=== PATIENT | female | born 1945 | race Caucasian/White ===

== ENCOUNTER 2021-06-19 01:09 | Day surgery (SDC) | payer MEDICARE, SELFPAY ==
[2021-06-07 13:05] VITALS: BMI 28.3
--- NOTE | 2021-06-18 13:02 | PM.HPGS ---
History of Present Illness History of Present Illness Consent: Risks, benefits, and alternatives have been discussed and questions answered. Patient agrees to proceed with procedure. Chief complaint: neoplasm screening Narrative: Johanne Ricardo is a 76 year old female Referred for colon cancer screening Review of Systems Review of Systems: All systems reviewed & are unremarkable except as noted in HPI and below PMFSH Past Medical History Medical History Diabetes HTN (hypertension) Hyperlipidemia Overweight Surgical History Surgical History H/O: hysterectomy History of total knee arthroplasty Social History Social History Smoking packs per day: 1 Smoking cigarettes per day: 20.0 Years smoked: 20 Smoking pack-years: 20.00 Smoking status: Former smoker Substance use type: does not use Meds Home Medications and Allergies Home Medications Medication Instructions Recorded Confirmed Type atorvastatin 20 mg PO DAILY 06/07/21 06/19/21 History bisoprolol-hydrochlorothiazide 1 tablet PO DAILY 06/07/21 06/19/21 History lisinopril 5 mg PO DAILY 06/07/21 06/19/21 History metformin 500 mg PO BID 06/07/21 06/19/21 History pantoprazole 40 mg PO DAILY 06/07/21 06/19/21 History Allergies Allergy/AdvReac Type Severity Reaction Status Date / Time No Known Allergies Verified 06/19/21 11:02 Exam Resp: Auscultation: clear to auscultation bilaterally Cardio: Rate: regular rate Rhythm: regular rhythm GI: GI Palp: Yes Soft to palpation and No Tenderness to palpation present (GI) Assessment and Plan Assessment and plan (1) Colon cancer screening: Code(s): Z12.11 - Encounter for screening for malignant neoplasm of colon Status: Acute Assessment and Plan: Colonoscopy with possible biopsy or polypectomy or cautery or injection of substances.
[2021-06-19 11:03] VITALS: BP 145/85; PULSE 91; RESP 16; TEMP 37.3; O2SAT 96
[2021-06-19 11:03] LABS: Glucose Point of Care 172 mg/dl (65-105)
[2021-06-19] MEDS: LACTATED RINGERS 1,000 ML 150 ML IV CONT (11:05)
--- NOTE | 2021-06-19 11:13 | P.PNAN_ITS ---
Anes - Initial Pre Proc Eval Procedure: Operation Date: 06/19/21 12:30 Proposed Procedures p Screening Colonoscopy - Bhargav Voss MD Date/Time: 06/19/21 11:13 Surgeon: Bhargav Voss MD Pre Op Diagnosis: neoplasm screening Patient Data Age: 76 Gender: F Height: 1.63 m Weight: 74.1 kg Last Vital Signs Temp 37.3 C 06/19/21 11:03 Pulse 91 06/19/21 11:03 Resp 16 06/19/21 11:03 BP 145/85 H 06/19/21 11:03 Pulse Ox 96 06/19/21 11:03 Allergies Allergy/AdvReac Type Severity Reaction Status Date / Time No Known Allergies Verified 06/19/21 11:02 Home Medications Medication Instructions Recorded Confirmed Type atorvastatin 20 mg PO DAILY 06/07/21 06/19/21 History bisoprolol-hydrochlorothiazide 1 tablet PO DAILY 06/07/21 06/19/21 History lisinopril 5 mg PO DAILY 06/07/21 06/19/21 History metformin 500 mg PO BID 06/07/21 06/19/21 History pantoprazole 40 mg PO DAILY 06/07/21 06/19/21 History Laboratory Tests 06/19/21 11:00 POC Capillary Glucose 172 mg/dl H mg/dl (65-105) Patient hx anesthesia problems: none Family hx anesthesia problems: none Results Review: All pre-operative results and documents have been reviewed as part of the pre-operative evaluation. [facility] Past Medical History Medical History (Updated 06/19/21 @ 11:14 by Rosalino De Leon MD) Diabetes HTN (hypertension) Hyperlipidemia Overweight Surgical History Surgical History (Updated 06/19/21 @ 11:14 by Rosalino De Leon MD) H/O: hysterectomy History of total knee arthroplasty Social History Social History Smoking packs per day: 1 Smoking cigarettes per day: 20.0 Years smoked: 20 Smoking pack-years: 20.00 Smoking status: Former smoker Substance use type: does not use Anes - Eval Final PreProcedure Day of Procedure 06/19/21 11:13 Patient weight: overweight Heart: regular rate and rhythm Lungs: clear to auscultation Airway: Mallampati scale class II Neurological: alert and oriented Last oral intake: >/= 8 hours ASA classification: III Emergent: no Anesthetic plan: proceed Anesthesia type and monitoring: general GIVS and standard monitoring Results Review: All pre-operative results and documents have been reviewed as part of the pre-operative evaluation. Informed Consent: The patient's anesthetic plan and its attendant risks and benefits were discussed with the patient/family/POA. Questions were solicited and answers provided to the satisfaction of the patient/family/POA.
[2021-06-19 12:14] VITALS: BP 120/52; PULSE 80; RESP 20; O2SAT 96
[2021-06-19 12:24] VITALS: BP 116/81; PULSE 74; RESP 20; O2SAT 97
[2021-06-19 12:34] VITALS: BP 121/75; PULSE 72; RESP 18; O2SAT 96
== END 2021-06-19 12:45 | disposition home or self-care (01) ==
PROVIDERS: PCP Internal Medicine; Visit Provider Internal Medicine Gastroenterology
PROC: 0DJD8ZZ Inspection of Lower Intestinal Tract, Via Natural or Artificial Opening Endoscopic (ICD-10-PCS; CPT 45378; principal; 2021-06-19 12:30)
DX: Z12.11 Encounter for screening for malignant neoplasm of colon (principal); D12.5 Benign neoplasm of sigmoid colon; K57.30 Diverticulosis of large intestine without perforation or abscess without bleeding; I10 Essential (primary) hypertension; E11.9 Type 2 diabetes mellitus without complications; E78.5 Hyperlipidemia, unspecified; Z90.710 Acquired absence of both cervix and uterus
CPT/HCPCS: 45380; 82948; 88305; J2704; J7120

== ENCOUNTER → 2021-08-14 07:22 | Outpatient (REF) | payer MEDICARE, SELFPAY | LOC: ANHLAB 07:22 | PROVIDERS: PCP Internal Medicine; Visit Provider Nurse Practitioner | DX: C44.629 Squamous cell carcinoma of skin of left upper limb, including shoulder (principal) | CPT/HCPCS: 88305; 88331 ==

== ENCOUNTER 2022-03-24 14:11 | Outpatient (NON) | payer MEDICARE, SELFPAY | END 2022-03-24 14:12 | disposition home or self-care (01) | LOC: ANHLAB 14:11 | PROVIDERS: PCP Internal Medicine; Visit Provider Nurse Practitioner | DX: C44.622 Squamous cell carcinoma of skin of right upper limb, including shoulder (principal); C44.311 Basal cell carcinoma of skin of nose | CPT/HCPCS: 88305; 88331 ==

== ENCOUNTER 2023-12-03 08:16 | Outpatient (CLI) | payer MEDICARE, SELFPAY ==
--- NOTE | ~2023-12-03 | XR_ITS ---
EXAMINATION: XR UGI w barium swallow DATE: 12/03/2023 09:00 INDICATION: Gastroesophageal reflux disease. Abdominal pain after eating. TECHNIQUE: The patient drank thick barium, gas-producing crystals, and thin barium. Fluoroscopy of th e esophagus, stomach, and proximal small bowel was performed. Fluoroscopy exposure time was 0.8 minut es. The total number of images was 283. Total dose-area product was 2.395 Gy-cm^2. COMPARISON: None. FINDINGS: There is no mass or stricture of the esophagus. There is decreased primary and secondary es ophageal peristalsis. No abnormal tertiary waves. There is no hiatal hernia. There was no gastroesoph ageal reflux with provocative maneuvers. The stomach shows a normal folding pattern. 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 IMPRESSION: 1. Mild esophageal dysmotility. Reviewed, dictated and finalized at location A.
== END 2023-12-03 08:17 | disposition home or self-care (01) ==
PROVIDERS: PCP Internal Medicine; Visit Provider Nurse Practitioner Family
DX: K21.9 Gastro-esophageal reflux disease without esophagitis (principal); Z87.11 Personal history of peptic ulcer disease; R10.13 Epigastric pain; R14.0 Abdominal distension (gaseous); K22.89 Other specified disease of esophagus
CPT/HCPCS: 74240